=== PATIENT | male | born 1955 | race Caucasian/White ===

== ENCOUNTER → 2021-02-21 | Outpatient (REF) | payer OTHER ==
[~2021-02-21] MED LIST: ASPI81CH12 PO; BISOPROLOL FUMARATE PO; COUM1TAB18 PO; HYDROCH; HYDROCHLORIZIDE PO; JANUMET PO; LORATADINE PO; LOSA50TA20 PO; MELA3CAP PO; OXYC1TAB23 PO; OXYC30TA4 PO; PEPCID PO; PRAV1TAB39 PO; TYLE325T5 PO; [UNRECOGNIZED DRUG - OTHER] PO
== END ==
LOC: M LAB REF 13:46
PROVIDERS: ATTEND Physician Assistant Medical
DX: R19.7 Diarrhea, unspecified (principal)

== ENCOUNTER → 2021-05-22 | Outpatient (CLI) | payer OTHER ==
[~2021-05-22] MED LIST changes: +ASPI1CHW3 PO; +ATOR40TA75 PO; +BISO5TAB14 PO; +CVS1CAP2 PO; +IRBE150T14 PO; +METF-838 PO; +MONT10TA10 PO; +SERT50TA29 PO; +VITMTA PO
== END ==
LOC: M LABSMTC 10:17
PROVIDERS: ATTEND Anesthesiology
DX: Z01.818 Encounter for other preprocedural examination (principal); Z11.52 Encounter for screening for COVID-19

== ENCOUNTER 2021-05-27 07:55 | Day surgery (SDC) | payer OTHER ==
[~2021-05-27] VITALS: Ht 167.6 cm; Wt 87.5 kg
[~2021-05-27 07:55] MED LIST changes: -MONT10TA10 PO; +MONT10TA97 PO; +NS 1,000 ML IV ONE
[2021-05-27] MEDS ORDERED: propofoL 200 MG/20 ML VIAL As Ordered ONE (09:51)
[2021-05-27] MEDS ORDERED: ePHEDrine SULFATE 25 MG/5 ML(5MG/ML) SYRINGE As Ordered ONE (10:12)
[2021-05-27 10:45] VITALS: BP 148/78
== END 2021-05-27 10:55 | disposition home or self-care (01) ==
LOC: M OPP 07:55
PROVIDERS: ATTEND Internal Medicine Gastroenterology
DX: Z12.11 Encounter for screening for malignant neoplasm of colon (principal); Z86.010 Personal history of colon polyps; Z80.0 Family history of malignant neoplasm of digestive organs; K63.5 Polyp of colon; K57.30 Diverticulosis of large intestine without perforation or abscess without bleeding; K64.8 Other hemorrhoids; Z79.82 Long term (current) use of aspirin; Z79.84 Long term (current) use of oral hypoglycemic drugs; Z79.899 Other long term (current) drug therapy